=== PATIENT | female | born 1955 | race Caucasian/White ===

== ENCOUNTER 2016-08-08 10:53 | Inpatient (IN) | payer OTHER ==
[~2016-08-08] VITALS: Ht 160 cm; Wt 58.5 kg
--- NOTE | ~2016-08-08 | D ---
[facility] [place] [address] [place] [address] DISCHARGE SUMMARY Name: YUNIEL GELLER Room #: 409-P [facility] IN M.R.#: [id number] Admission: 08/08/16 Attend Phys: Jasbir Ernandez MD Discharge: 08/10/16 Date of : 51 Report #: [id number] THIS REPORT FOR: //name// CC: Jasbir Aburto FINAL DIAGNOSIS: Right pelvic mass. PROCEDURE: Right inguinal lymph node biopsy. HOSPITAL COURSE: The patient was admitted for evaluation of her right lower pelvic mass with some involvement of lymph nodes into the right groin and into the psoas muscle on the right. She also had compressive venous stasis with edema and pain of the right leg. Dr. Ayala assessed her. Ultimately, the decision was to biopsy the lymph node to establish a diagnosis and then outline a treatment plan. Venous Doppler ultrasound of the right leg showed no DVT. We did discuss the options of DVT prophylaxis given the CT findings and we will place her on Xarelto 10 mg a day. PHYSICAL EXAMINATION: GENERAL: On the day of discharge, she was awake and alert, walking the halls. Tolerated diet. VITAL SIGNS: Stable. LUNGS: Clear. HEART: Regular. ABDOMEN: Soft with probable firm enlargement of the right lower quadrant and 1+ edema of the right leg. DISPOSITION: To be discharged to home with diet and activity as tolerated. Follow up with myself and Dr. Ayala in 1 week for biopsy results, Xarelto 10 mg a day, tramadol 50 mg q. 6 hours p.r.n. pain. <ELECTRONICALLY SIGNED> By: Jasbir Ernandez MD 08/10/16 1405 1252 1336 Jasbir Ernandez MD /nt
--- NOTE | ~2016-08-08 | O ---
[facility] [place] [address] OPERATIVE REPORT Name: YUNIEL GELLER Room #: 409-P [facility] IN M.R.#: [id number] Admission: 08/08/16 Attend Phys: Jasbir Ernandez MD Discharge: 08/10/16 Date of : 51 Report #: [id number] THIS REPORT FOR: //name// CC: [facility]ir [facility] DATE OF SERVICE: 08/10/2016 PREOPERATIVE DIAGNOSES: 1. Lower abdominal/pelvic mass. 2. Bilateral groin lymphadenopathy. 3. Marked right lower extremity edema. POSTOPERATIVE DIAGNOSES: 1. Lower abdominal/pelvic mass. 2. Bilateral groin lymphadenopathy. 3. Marked right lower extremity edema. PROCEDURE PERFORMED: Right inguinofemoral lymphadenectomy. SURGEON: Pratibha Noble MD. TILE GRADER: Rina Watson MS3. ANESTHESIA: General endotracheal anesthesia. COMPLICATIONS: None appreciated. ESTIMATED BLOOD LOSS: Less than 5 mL. SPECIMEN: Right groin lymph nodes excised to pathology. INDICATIONS: The patient is a 61-year-old previously healthy female with a long history of progressively worsening lower abdominal/pelvic fullness and a 2-week history of marked right lower extremity edema. The patient underwent an ultrasound and CT scan which showed a large right pelvic mass with bilateral groin lymphadenopathy all concerning for malignancy. Her right lower extremity edema is secondary to compression on the femoral vessels in the right leg. Indication was for right inguinal femoral lymphadenectomy today for tissue diagnosis. DESCRIPTION OF PROCEDURE: After explaining the risks, benefits and alternatives of the procedure with the patient in detail and obtaining a written consent, the patient was brought to the operating room and placed supine on the operating room table. After conducting a thorough timeout procedure verifying correct patient and procedure, the patient was given general endotracheal anesthesia. [address] [address] OPERATIVE REPORT Name: YUNIEL GELLER Room #: 409-P [facility] IN M.R.#: [id number] Admission: 08/08/16 Attend Phys: Jasbir Ernandez MD Discharge: 08/10/16 Date of : 51 Report #: [id number] Once adequate anesthesia was obtained, her SCDs were hooked up to pneumatic compression device. She was given a preoperative dose of antibiotics in line with the SCIP protocol. The patient's abdomen was prepped and draped in standard surgical sterile fashion. A 10 mL of 0.5% Marcaine with epinephrine were used to anesthetize the skin in the right groin overlying an easily palpable inguinal femoral lymph node complex. #15 bladed scalpel was used to create a 3 cm skin incision following her groin crease. Electrocautery was used to carry this down through skin and subcutaneous tissues until I arrived upon the anterior aspect of the mass in question. I then proceeded to circumferentially dissect the mass out using a combination of electrocautery as well as the handheld LigaSure device to prevent lymphocele formation. Once I had circumferentially dissected this out, I was able to use a [place] clamp and elevated into the bed of the wound and used the handheld LigaSure device to truncate it at its base sealing all vessels and lymphatics with the LigaSure device. This allowed me to pass the specimen off the field to go fresh for lymphoma protocol. Hemostasis was assured in the right groin space. It was irrigated with 100 mL of normal saline and irrigant ran clear. I then closed the deep tissues in several layers using 3-0 Vicryl in standard interrupted inverted fashion. Dermis was closed with 3-0 Vicryl in an inverted interrupted fashion as well and skin was closed using a running 4-0 Monocryl subcuticular suture. Dermabond glue was then applied to the skin wound. At the end of the procedure, all instrument, needle and sponge counts were correct. The patient tolerated the procedure without incident, was awakened in the operating room and transitioned to the recovery room in stable condition with no apparent complications. <ELECTRONICALLY SIGNED> By: Pratibha Noble MD, FACS 08/10/16 1942 0816 1257 Pratibha Noble MD, FACS /nt
--- NOTE | ~2016-08-08 | HC ---
[facility] [place] [address] [place] [address] CONSULTATION Name: YUNIEL GELLER Room #: 409-[facility] IN M.R.#: [id number] Admission: 08/08/16 Attend Phys: Jasbir Ernandez MD Discharge: Date of : 51 Report #: [id number] THIS REPORT FOR: //name// [facility] DATE OF SERVICE: 08/09/2016 REFERRING PROVIDER: Jasbir Ernandez M.D. REASON FOR CONSULTATION: Right leg swelling with an abdominal mass. HISTORY OF PRESENT ILLNESS: The patient is a 61-year-old previously healthy female who was directly admitted for significant swelling of the right lower extremity and lower abdominal regions. The patient states that over the past year, she has noted a large firm area in the right groin into the lower abdominal region and thought that it was swollen lymph nodes. The patient changed her diet and over the past 2 weeks, noted that her right thigh became significantly swollen and painful. She was seen in the emergency room on 08/05/2016, where workup in the form of ultrasound as well as a CT scan revealed a large right pelvic mass, possibly arising from the ovary, the psoas muscle, the bladder or simply lymph nodes throughout concerning for malignancy. This mass is causing significant compression of the femoral vessels in the right leg and she is admitted at this time for workup and evaluation. I have been asked to provide a biopsy for tissue diagnosis of this likely neoplastic process. PAST MEDICAL HISTORY: None. PAST SURGICAL HISTORY: None. HOME MEDICATIONS: None. ALLERGIES: No known drug allergies. FAMILY HISTORY: Reviewed and noncontributory. SOCIAL HISTORY: No chronic alcohol use, does have a 28-okht-rije history of smoking and states she quit last week. No history of illicit drug use and she is accompanied by her today. REVIEW OF SYSTEMS: GENERAL: The patient denies any nocturnal fevers or chills. HEENT: No change in vision, change in hearing. NECK: No swelling or difficulty swallowing. HEART: No chest pain or palpitations. LUNGS: No cough or shortness of breath. [facility] [address] [place] [address] CONSULTATION Name: YUNIEL GELLER Room #: 409-P [facility] IN M.R.#: [id number] Admission: 08/08/16 Attend Phys: Jasbir Ernandez MD Discharge: Date of : 51 Report #: [id number] ABDOMEN: No nausea, no vomiting. GENITOURINARY: No dysuria or hematuria. ENDOCRINE: No polyuria, polydipsia. HEMATOLOGIC: No history of bleeding or easy bruising. EXTREMITIES: No history of weakness or limited range of motion. NEUROLOGIC: No history of syncope or near syncopal episodes. SKIN AND INTEGUMENT: No history of abnormal lesions or moles. PSYCHIATRIC: No history of anxiety or depression. PHYSICAL EXAMINATION: VITAL SIGNS: Temperature 98.6, pulse 89, respirations 18, blood pressure 115/67. She stands 5 feet 3 inches tall and weighs 128 pounds. GENERAL: Alert and oriented, in no acute distress. HEENT: Normocephalic, atraumatic. Pupils equal, round, reactive to light. NECK: Supple, without lymphadenopathy. Trachea midline. HEART: Regular rate and rhythm. LUNGS: Clear to auscultation bilaterally. ABDOMEN: Soft, nondistended, minimally tender in the lower abdomen where there is an easily palpable firm mass in the right lower abdomen into the groin region. She has easily palpable right inguinal lymphadenopathy. GENITOURINARY: Normal external female genitalia. EXTREMITIES: No clubbing, cyanosis or edema of the left leg. However, there is marked edema of the right leg, mainly in the thigh. NEUROLOGIC: Cranial nerves 2-12 are grossly intact. PSYCHIATRIC: Normal mood and affect. SKIN AND INTEGUMENT: No abnormal lesions or moles. LABORATORY AND X-RAY DATA: CBC from her recent emergency room visit showed a white blood cell count of 5.2 thousand, hemoglobin 11.0, platelets 258,000. Her creatinine was 1.0. Albumin was 3.2. Liver function enzymes were normal. Ultrasound of the pelvis and transvaginal region showed a large complex solid mass within the right adnexal region crossing the midline measuring 13 x 9 x 10 cm consistent with malignancy. Followup CT scan of the abdomen and pelvis showed large mass arising in the pelvis, either from the right psoas muscle or the gynecologic organs invading the right internal iliacus muscle extending through the retroperitoneum with probable invasion of the bladder and uterus. She also has multiple enlarged retroperitoneal and bilateral inguinal lymph nodes. She does have marked compression of the right iliac artery and vein, which likely accounts for the right leg swelling. Ultrasound of the lower extremity to check for DVT was negative yesterday. LDH was elevated at 618 today. ASSESSMENT AND PLAN: A 61-year-old previously healthy female with slowly enlarging mass of the lower abdomen/pelvis as well as marked right lower extremity swelling over the past couple of weeks. It appears that she most likely has a malignant process in the pelvis and groin regions causing [facility] [address] [place] [address] CONSULTATION Name: YUNIEL GELLER Room #: 409-P [facility] IN M.R.#: [id number] Admission: 08/08/16 Attend Phys: Jasbir Ernandez MD Discharge: Date of : 51 Report #: [id number] compression of her femoral vessels leading to her lower extremity swelling. As she likely has an oncologic process coupled with decreased flow and was recently a smoker she undoubtedly has very high risk for deep venous thrombosis at this time point. She does have a very mobile mass in the right groin with what appears to be a fatty tissue plane therefore likely making this is an easy excisional biopsy and as such, I will put her on the schedule first thing tomorrow morning for an open excisional biopsy of this mass for tissue diagnosis, to be followed quickly by anticoagulation per the direction of the primary care or hematology/oncology services. I did discuss this with Dr. Ernandez in detail. Furthermore, I spent greater than 60 minutes discussing with the patient and her as well as showing her CAT scan images and explaining the biopsy process as well as any potential treatment moving forward, which would likely be in the form of chemo plus minus radiation. I will defer that decision to the oncology service once pathological diagnosis has been made. I sincerely appreciate this consult. I will follow closely and leave any further recommendations in the patient's chart as appropriate. <ELECTRONICALLY SIGNED> By: Pratibha Noble MD, FACS 08/09/162113 21 00 Pratibha Noble MD, FACS /nt
--- NOTE | ~2016-08-08 | S ---
[facility] [place] [place] [address] SURGICAL PATH RPT PROCEDURE Name: ALISHA GROVES Room #: 409-P [facility] IN M.R.#: [id number] Admission: 08/08/16 Date of : 51 Discharge: 08/10/16 Report #: [id number] Path Case #: [id number] PATHOLOGY REPORT COLLECTION DATE: 08/10/2016 RECEIVED DATE: 08/10/2016 SUBMITTING PHYS: Dr. Pratibha Noble OTHER PHYS: Dr. 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 (SEE COMMENT) SYNOPTIC CANCER STAGING REPORT SPECIMEN Specimen: Lymph node(s) Procedure: Resection Tumor Site: Lymph node(s) Specify Site(s): right inguinal lymph node TUMOR Histologic Type (Based on the 2008 WHO Classification): Mature B-Cell Neoplasms Fred marginal zone lymphoma SPECIAL STUDIES Immunophenotyping (Flow Cytometry and / or Immunohistochemistry): Performed, see separate report: flow cytometry [facility] [id number] COMMENT: Sections show fragments of lymph node with effaced fred architecture. Small residual follicles are identified. There is an expanded interfollicular space by a monotonous appearing atypical lymphoid infiltrate. The atypical lymphocytes are predominantly small, round and mature appearing with condensed chromatin and scant cytoplasm. Scattered slightly larger "transformed" cells are also noted in this area. Neither a high mitotic rate nor abundant single cell necrosis is seen. Geographic necrosis is not identified. To confirm the flow cytometry and to identify cells in a tissue architectural context, properly-controlled immunohistochemical stains are performed. Block A1: [address] [address] SURGICAL PATH RPT PROCEDURE Name: ALISHA GROVES Room #: 409-P [facility] IN M.R.#: [id number] Admission: 08/08/16 Date of : 51 Discharge: 08/10/16 Report #: [id number] Path Case #: [id number] PAX5: stains neoplastic interfollicular B cells, residual follicles non-reactive; CD3: residual follicles are reactive; CD5: residual follicles are reactive, no B cell co-expression; CD10: patchy interfollicular staining and focal residual probable germinal center cells; BCL-6: patchy staining within the residual follicles; BCL-2: stains the interfollicular B cells, residual follicles are non-reactive; Cyclin D1: lacks diffuse nuclear staining; CD23: stains numerous small residual follicular dendritic cell meshworks; CD21: stains numerous small residual follicular dendritic cell meshworks; MUM1: stains numerous scattered smaller cells; Ki-67: highlights a proliferative index of approximately 20-30%; Elliott and lambda in-situ hybridization: lambda restricted. Flow cytometric immunophenotypic analysis was performed at [facility]. The diagnosis is "monoclonal B cells, 34%." There are 96.9% lymphocytes. Of the lymphocytes, there are 62% T cells with a CD4/CD8 ratio of 2.7 and no aberrant T cell antigen expression. There are 35% monoclonal B cells with lambda light chain restriction that show CD19 mod, CD20 mod, CD5 neg, CD10 neg, CD11c dim, CD23 (some), HLA-DR mod and lambda bright. Flow cytometry shows a monoclonal B cell population (34% of total cells) without detectable CD5 or CD10 expression. Please see separate flow cytometry report from [facility] ([id number]). Overall the diagnosis is involvement of the lymph node by fred marginal zone lymphoma. Clinical and radiographic correlation is recommended. Integrated Marketing Intern slides are co-reviewed with Dr. Mara Gonzalez. The case is discussed preliminarily with Dr. Chanelle Ayala on 08/12/16, at 8:30 a.m. It is discussed with Dr. Ayala again on 08/13/2016. (CLW:marika; d/t: 08/11/2016) PATHOLOGIST: Bettie Daniels M.D. REPORT ELECTRONICALLY SIGNED BY: Bettie Daniels M.D. DATE/TIME: 08/12/2016 22:33 * * * * * * * * * * * * GROSS PATHOLOGY: The specimen is received fresh in saline labeled, "Alisha Groves and right inguinal lymph node". It consists of [place] [address] SURGICAL PATH RPT PROCEDURE Name: ALISHA GROVES Room #: 409-P [facility] IN M.R.#: [id number] Admission: 08/08/16 Date of : 51 Discharge: 08/10/16 Report #: [id number] Path Case #: [id number] node weighing 6.2 grams and measuring 2.5 x 2.3 x 2.0 cm. The capsule is focally disrupted. The external surface is inked blue. The specimen is serially sectioned. A mortician supplies sales representative portion is submitted in RPMI and sent for flow cytometry. The remaining tissue is entirely submitted as A1-A2 and A3-A4. Air-dried touch imprints are performed for Diff-Quik staining. (CLW/praveena; d/t: 08/10/16) CLINICAL HISTORY: Lymphadenopathy INITIAL CPT CODE(S): A; 77735, 73154, 03017, 75609, 06773, 94237, 16691, 44371, 91085, 04783, 47172, 88119, 36004, 80792 Professional services performed by [facility] at [place] [address], [place] [address] Technical services performed by [facility] at [address] [place] [address], [address], [place] [address]. [facility] [place] [address] PHONE: [phone] DIRECTOR: Kaleb Ennis M.D. * * * END OF REPORT * * *
--- NOTE | ~2016-08-08 | H ---
[facility] [place] [address] HISTORY AND PHYSICAL Name: YUNIEL GELLER Room #: 409-P ADM IN M.R.#: [id number] Admission: 08/08/16 Attend Phys: Jasbir Ernandez MD Discharge: Date of : 51 Report #: [id number] THIS REPORT FOR: //name// CC: Jasbir Ernandez AMENDED REPORT - SEE BELOW DATE OF SERVICE: 08/08/2016 CHIEF COMPLAINT: Right leg swelling and abdominal swelling. HISTORY OF PRESENT ILLNESS: The patient is a 61-year-old female who was admitted from the office for evaluation of swelling of the right leg and abdomen. She said she has noted for about a year a large firm area in her right groin and right lower abdomen. She thought it might be a swollen lymph node or bowel obstruction, so she changed her diet. However, in the last 2 weeks, her right thigh has become swollen and painful. She said she is trying to walk and apply ice to "move the lymph fluid" upper leg; however, nothing seemed to help. She was seen in the Emergency Room on 08/05/[address] and ultrasounds revealed a large right pelvic mass, possibly arising from the ovary, but involving the psoas muscle with scattered lymph nodes throughout. It appears that this mass is causing venous compression in her right leg. She is now admitted for workup and evaluation. PAST MEDICAL HISTORY: None. PAST SURGICAL HISTORY: None. FAMILY HISTORY: Noncontributory. SOCIAL HISTORY: No chronic alcohol use. Does have about a 20-zreo-pzsk history of smoking. ALLERGIES: None. MEDICATIONS: None. REVIEW OF SYSTEMS: Denies any change in diet or change of appetite, weight loss, night sweats, chest pain, shortness of breath, abdominal pain, nausea, vomiting, diarrhea, constipation, dysuria, syncope. PHYSICAL EXAMINATION: VITAL SIGNS: Blood pressure 112/64, temperature 96, pulse 94, O2 sat 98% on room air. Weight is 129 pounds. GENERAL: She is awake and alert, in no distress. HEAD AND NECK: Unremarkable. [facility] [address] [place] [address] HISTORY AND PHYSICAL Name: YUNIEL GELLER Room #: [address] [place] [address] IN M.R.#: [id number] Admission: 08/08/16 Attend Phys: Jasbir Ernandez MD Discharge: Date of : 51 Report #: [id number] LUNGS: Clear. HEART: Regular. ABDOMEN: Soft, scattered bowel sound. There is a firm, palpable enlargement in the right lower quadrant and groin. EXTREMITIES: There is 1-2+ edema of the right leg, mainly of the thigh. There is no redness. Left foot looks unremarkable. NEUROLOGIC: Nonfocal. I reviewed lab data, multiple ultrasounds and a CT abdomen and pelvis from ER dated 08/05/2016. ASSESSMENT: Right ovarian and pelvic mass. PLAN: She is admitted for Oncology evaluation and workup and see what other surgical interventions may be required. AMENDMENT (DEMOGRAPHIC ERROR): 08/09/16 Report originally electronically signed: 08/08/16 <ELECTRONICALLY SIGNED> By: Jasbir Ernandez MD 08/09/16 1813 1038 1201 Jasbir Ernandez MD /nt
[2016-08-08 11:16] VITALS: BP 125/69
[2016-08-08 16:40] VITALS: BP 123/63
[2016-08-08 20:37] VITALS: BP 120/62
[2016-08-09 08:00] VITALS: BP 115/67
[2016-08-09 16:00] VITALS: BP 114/62
[2016-08-09 20:00] VITALS: BP 109/68
[2016-08-10 04:00] VITALS: BP 159/80
[2016-08-10 05:57] LABS: HEMATOCRIT 29.9 % (37.0-47.0); HEMOGLOBIN 10.7 gm/dL (12.0-15.0); MCH 30.6 pg (26.0-34.0); MCHC 35.7 g/dL (28.0-37.0); MCV 85.8 fL (80.0-100.0); RBC 3.48 mil/uL (4.20-5.00); RDW 12.7 % (10.5-14.5); WBC 4.8 thou/uL (4.0-11.0)
[2016-08-10 06:09] LABS: CALCIUM 8.5 mg/dL (8.5-10.1); CREATININE 1.8 mg/dL (0.6-1.0); POTASSIUM 4.1 mmol/L (3.5-5.1)
[2016-08-10 07:00] VITALS: BP 128/68
[2016-08-10] MEDS ORDERED: TRAMADOL 50 MG50 MG PO (12:49)
[2016-08-10] MEDS ORDERED: XARELTO10 MG PO (12:49)
[2016-08-10 12:53] VITALS: BP 128/68
== END 2016-08-10 13:25 | disposition home or self-care (01) | DRG 356 ==
LOC: 4N 10:53
PROVIDERS: Surgery
PROC: 07BH0ZZ Excision of Right Inguinal Lymphatic, Open Approach (ICD-10-PCS; principal; 2016-08-10)
DX: R19.00 Intra-abdominal and pelvic swelling, mass and lump, unspecified site (principal); N17.0 Acute kidney failure with tubular necrosis; R59.1 Generalized enlarged lymph nodes; I87.8 Other specified disorders of veins; Z80.41 Family history of malignant neoplasm of ovary; Z80.3 Family history of malignant neoplasm of breast
CPT/HCPCS: 10790; 50010; 50101; 50386; 50403; 50942; 54118; 56524; 56526; 62110; 62900; 70005